=== PATIENT | female | born 2000 | race Caucasian/White ===

== ENCOUNTER 2022-02-15 14:50 | Emergency (ER) | payer OTHER, SELFPAY ==
[2022-02-15 16:13] VITALS: BP 127/83; PULSE 108; RESP 14; O2SAT 100; BMI 29.9
--- NOTE | 2022-02-15 16:16 | ECG_ITS ---
Test Reason : syncopy Blood Pressure : / mmHG Vent. Rate : 092 BPM Atrial Rate : 092 BPM P-R Int : 130 ms QRS Dur : 070 ms QT Int : 334 ms P-R-T Axes : 016 037 017 degrees QTc Int : 413 ms Normal sinus rhythm Normal ECG No previous ECGs available Referred By: Generic ED Physician Electronically Signed By:ALANNAH MELARA
--- OUTSIDE RECORDS SUMMARY | 2022-02-15 18:42 | XMS_ITS | Continuity of Care Document ---
:2000 Author Organization [facility] Address [address] [place] [address] Drive [address] [place] [address]- Care Team Providers Name Role Phone Karo Schofield MD Primary Care Physician Encounter [facility] Date(s): 11/25/21 - 12/25/21 [facility] [address] [place] [id number] Attending Physician: Giancarlo Connelly Admitting Physician: Giancarlo Connelly Referring Physician: tr ArCruz Patient Care team information PersonnelName: Karo Schofield MD Address: Address: [address] [place] [id number]
--- OUTSIDE RECORDS SUMMARY | 2022-02-15 18:42 | XMS_ITS | Continuity of Care Document ---
:2000 Author Organization [facility] Address [address] [place] [address] Drive [address] [place] [address]- Care Team Providers Name Role Phone Karo Schofield MD Primary Care Physician Encounter [facility] Date(s): 11/25/21 - 12/25/21 [facility] [address] [place] [address] Drive [address] [place], [place] [address] Patient Care team information PersonnelName: Karo Schofield MD Address: Address: [address] [place] [address] [place], [place] [address]
[2022-02-15 18:54] LABS: MANUAL DIFF FLAG NO
[2022-02-15 18:58] LABS: Appearance Urine Clear; Color Urine Yellow; Glucose Urine UA Negative (Negative); Leukocyte Esterase Urine Small (1+) (Negative); Nitrite Urine Negative (Negative); Specific Gravity - Urine >= 1.030 (1.005-1.025); UMIC TRIGGER UACC YES; Urine Blood Negative (Negative); Urine Ketones 15 mg/dL (Negative); Urine Protein Negative (Neg-Trace)
[2022-02-15 18:58] LABS: Basophils Percent Auto 0.1 % (0-2); Eosinophils Percent Auto 0.1 % (0-4); Hematocrit 41.4 % (37.0-47.0); Hemoglobin 13.7 g/dl (12.0-16.0); Imm Gran Abs Auto 0.06 X10*3/uL (0.00-0.03); Imm Gran Pct Auto 0.4 % (0.0-0.4); Lymphocytes Absolute Auto 2.2 X10*3/uL (1.2-4.9); Mean Corpuscular HGB Conc 33.1 g/dl (31.0-35.0); Mean Corpuscular Hemoglobin 28.1 pg (27.0-33.0); Monocytes Absolute Auto 0.6 X10*3/uL (0.1-1.2); Neutrophils Absolute Auto 11.9 x10*3/uL (2.0-8.3); Neutrophils Percent Auto 80.4 % (45-73); Platelet Count 274 X10*3/uL (160-400); Red Blood Count 4.87 X10*6/uL (4.20-5.50); Red Cell Distribution Width 12.5 % (11.0-16.0); White Blood Count 14.8 X10*3/uL (4.8-10.8)
[2022-02-15 19:00] LABS: UPreg QC Valid YES; Urine Pregnancy NEGATIVE (NEGATIVE)
[2022-02-15 19:03] LABS: Bacteria Urine None Seen (None Seen); Hyaline Casts Urine 0-2 /LPF (0-2); RBC Urine 0-2 /HPF (0-2); UACC Culture Trigger YES
[2022-02-15 19:21] LABS: IDNOW Serial# BCCEAD1C; Influenza A Negative (Negative); Influenza B2 Negative (Negative)
[2022-02-15 19:23] LABS: COVID-19 Test Negative (Negative); IDNOW Serial# BCCEAD1C
[2022-02-15 19:40] LABS: Anion Gap 16 (12-20); Blood Urea Nitrogen 13 mg/dL (9-16); Calcium 9.9 mg/dL (8.4-10.2); Carbon Dioxide 24 mmol/L (22-29); Chloride 106 mmol/L (96-108); Creatinine Clr Calc Pharmacy 115.9; Estimated Glomerular Filt Rate > 60; Glucose Random 88 mg/dL (60-115); Potassium 5.1 mmol/L (3.3-5.1); Sodium 141 mmol/L (135-145)
--- NOTE | 2022-02-15 21:15 | ED_ITS ---
HPI - Syncope General Chief Complaint: Syncope Stated Complaint: hives, fall 02/15/22 head lac Time Seen by Provider: 02/15/22 20:52 Source: patient Mode of arrival: ambulatory Limitations: no limitations History of Present Illness HPI narrative: Patient with history of idiopathic urticaria took Benadryl did not eat much all day today went to bathroom syncopized and fell down came with a small facial lac of forehead. Patient denied any cold symptoms no urinary symptoms no abdominal pain patient does have hives acting up lately for last 1 day specially on the right forearm Related Data Allergies Allergy/AdvReac Type Severity Reaction Status Date / Time No Known Allergies Allergy Verified 02/15/22 16:13 Review of Systems Review of Systems: Yes all other systems are reviewed and are negative [facility] Social History Social History Advance Directives: No Advance Directives Information Provided: No Physical Exam Vital Signs: Vital Signs: Last Vital Signs Temp 98.3 F 02/15/22 21:39 Pulse 95 02/15/22 21:45 Resp 18 02/15/22 21:39 BP 136/71 02/15/22 21:45 Pulse Ox 100 02/15/22 21:39 O2 Del Method 02/15/22 21:39 BMI result Body Mass Index 29.9 Appearance: Alert. Oriented X3. No acute distress. Eyes: PERRLA, No Nystagmus ENT: Pharynx normal. Oral Mucosa moist superficial laceration forehead below the left eye teeth intact Neck: Normal inspection. Neck supple. CVS: Normal heart rate and rhythm. Pulses normal. Respiratory: No respiratory distress. Equal air entry bilateral, no wheezing/rales/rhonchi Abdomen: Soft and nontender. Bowel sounds are present, no mass palpable, no CVA tenderness Skin: Skin warm and dry. Normal skin color. Normal skin turgor. Extremities: No lower extremity edema. No calf tenderness Neuro: Oriented X 3. No motor deficit. Medications Administered Discontinued Medications Generic Name Dose Route Start Last Admin Trade Name Freq PRN Reason Stop Dose Admin Cefuroxime Axetil 250 mg 02/15/22 22:13 02/15/22 22:22 Cefuroxime Axetil 250 Mg Tablet PO 02/15/22 22:14 250 mg ONCE ONE Administration Dexamethasone 10 mg 02/15/22 21:16 02/15/22 21:37 Dexamethasone 2 Mg Tablet PO 02/15/22 21:17 10 mg ONCE ONE Administration Medical Decision Making Medical Decision Making [facility] Narrative: Patient likely with vasovagal attack lab workup showed slight UTI will discharge patient home on Ceftin started on prednisone and Jmulair advised patient to drink plenty of fluids Lab Attestation: I reviewed the patient's lab results. Independent interpretation of EKG, rhythm strip, radiology study: Independent interp EKG,rhythm strip, radiology study (Normal sinus rhythm heart rate 92 beats per minute normal interval normal axis no acute ST changes impression normal EKG) I performed an independent interpretation of the: EKG My interpretation is Procedures Laceration Laceration 1: Site: face Side (If applicable): left Size (cm): 2 Description: linear Skin layer closed with: other (Skin glue) Discharge Plan Discharge Clinical Impression: Vasovagal syncope
[2022-02-15] MEDS: dexAMETHasone 2 MG TABLET 10 MG PO (21:37)
[2022-02-15 21:39] VITALS: BP 140/85; PULSE 97; RESP 18; TEMP 36.8; O2SAT 100
[2022-02-15 21:42] VITALS: BP 136/78; PULSE 83
[2022-02-15 21:43] VITALS: BP 132/72; PULSE 85
[2022-02-15 21:45] VITALS: BP 136/71; PULSE 95
== END 2022-02-15 22:55 | disposition home or self-care (01) ==
PROVIDERS: Emergency Provider Internal Medicine; PCP Internal Medicine
DX: S01.81XA Laceration without foreign body of other part of head, initial encounter (principal); R55 Syncope and collapse; W01.0XXA Fall on same level from slipping, tripping and stumbling without subsequent striking against object, initial encounter; Y93.9 Activity, unspecified; Y92.9 Unspecified place or not applicable; Y99.9 Unspecified external cause status; Z20.822 Contact with and (suspected) exposure to COVID-19; Z79.899 Other long term (current) drug therapy
CPT/HCPCS: 12011; 36415; 80048; 81001; 81025; 85025; 87086; 87502; 87635; 93005; 99283; 99284; J8540